=== PATIENT | male | born 1975 | race Caucasian/White ===

== ENCOUNTER 2019-03-07 17:19 | Emergency (ER) | payer SELFPAY ==
[~2019-03-07] VITALS: Ht 180.3 cm; Wt 81.7 kg
[~2019-03-07 17:19] MED LIST: Robaxin500 MG PO
[2019-03-07] MEDS ORDERED: Augmentin 875-1 EACH PO (17:57)
[2019-03-07] MEDS ORDERED: HYDR1TAB94 PO (17:57)
== END 2019-03-07 18:03 | disposition home or self-care (01) ==
LOC: ER 17:19
DX: K04.7 Periapical abscess without sinus (principal); F17.210 Nicotine dependence, cigarettes, uncomplicated
CPT/HCPCS: 99282

== ENCOUNTER 2022-01-15 18:20 | Emergency (ER) | payer OTHER ==
[~2022-01-15] VITALS: Ht 182.9 cm; Wt 77.1 kg
[~2022-01-15 18:20] MED LIST changes: +AMOCLA875 PO; +Augmentin 875-1 EACH PO; +HYDR1TAB94 PO; +HYOS.125 PO; +MASOPHEN500 M4 PO; +MULVITA PO; +VISBIOME 112.51 EACH PO
[2022-01-15] MEDS ORDERED: IBUP800 PO (21:06)
== END 2022-01-15 21:28 | disposition home or self-care (01) ==
LOC: ER 18:20
DX: S68.624A Partial traumatic transphalangeal amputation of right ring finger, initial encounter (principal); W28.XXXA Contact with powered lawn mower, initial encounter; F17.200 Nicotine dependence, unspecified, uncomplicated
CPT/HCPCS: 64450; 73130; 90471; 90714; 96372; 99283-25; J1885

== ENCOUNTER 2022-03-29 13:00 | Emergency (ER) | payer OTHER ==
[~2022-03-29] VITALS: Ht 182.9 cm; Wt 77.1 kg
[~2022-03-29 13:00] MED LIST changes: +IBUP800 PO
[2022-03-29] MEDS ORDERED: CEPH500 PO (15:20)
[2022-03-29] MEDS ORDERED: SULTRIDS PO (15:20)
== END 2022-03-29 15:30 | disposition home or self-care (01) ==
LOC: ER 13:00
DX: L98.9 Disorder of the skin and subcutaneous tissue, unspecified (principal); F17.210 Nicotine dependence, cigarettes, uncomplicated
CPT/HCPCS: 99282

== ENCOUNTER 2022-07-03 11:08 | Emergency (ER) | payer OTHER ==
[~2022-07-03] VITALS: Ht 190.5 cm; Wt 77.1 kg
[~2022-07-03 11:08] MED LIST changes: +CEPH500 PO; +SULTRIDS PO
[2022-07-03 12:46] LABS: Influenza A, PCR NEGATIVE (NEGATIVE); Influenza B, PCR NEGATIVE (NEGATIVE); Resp Syncytial Virus, PCR NEGATIVE (NEGATIVE); SARS-Cov-2 (COVID-19) PCR, MMC NEGATIVE (NEGATIVE)
[2022-07-03 16:11] LABS: Albumin/Globulin Ratio 0.7 (0.8-1.8); Bilirubin, Total 1.3 mg/dL (0.1-1.0); Bun/Creatinine Ratio 22.3 (12.0-20.0); Calcium, Blood 8.7 mg/dL (8.5-10.1); Creatinine, Blood 0.81 mg/dL (0.60-1.20); Globulin, Blood 4.2 g/dL (2.2-4.0); Potassium, Blood 4.4 mmol/L (3.5-5.5); Total Protein, Blood 7.2 g/dL (6.4-8.2)
[2022-07-03 16:13] LABS: Hemoglobin 14.6 g/dL (13.5-17.5); Mean Corpuscular HGB 31.7 pg (26.0-34.0); Mean Corpuscular Volume 93 fL (80-100); RDW Coefficient Variation 12.5 % (11.7-14.2); RDW Standard Deviation 43.1 fL (35.1-46.3); Red Blood Cell Count 4.61 M/mm3 (4.30-5.90); White Blood Cell Count 24.76 K/mm3 (4.00-11.30)
[2022-07-03] MEDS ORDERED: AZIT250 PO (17:22)
[2022-07-03] MEDS ORDERED: CEFD300 PO (17:22)
[2022-07-03 17:23] LABS: BAND PERCENT MAN 4 % (0-8); BASOPHILS PERCENT MAN 0 % (0-2); EOSINOPHILS PERCENT MAN 0 % (0-6); LYMPHOCYTES ABSOLUTE MAN 1.73 K/mm3 (0.84-5.20); LYMPHOCYTES PERCENT MAN 7 % (21-46); MONOCYTES ABSOLUTE MAN 1.48 K/mm3 (0.16-1.47); MONOCYTES PERCENT MAN 6 % (4-13); Mean Platelet Volume 9.6 fL (9.1-12.4); NEUTROPHILS ABSOLUTE MAN 21.54 K/mm3 (1.96-9.15); Platelet Count 157 K/mm3 (150-400); SEG NEUTROPHILS PERCENT MAN 83 % (41-73); TOTAL CELLS COUNTED 100
[2022-07-03] MEDS ORDERED: IBUP600 PO (17:23)
== END 2022-07-03 18:38 | disposition home or self-care (01) ==
LOC: ER 11:08
PROVIDERS: Physician Assistant
DX: J18.9 Pneumonia, unspecified organism (principal); F17.200 Nicotine dependence, unspecified, uncomplicated; Z20.822 Contact with and (suspected) exposure to COVID-19
CPT/HCPCS: 0241U; 36415; 71046; 80053; 83605; 85025; A9270; J0696; J7030

== ENCOUNTER 2025-02-13 19:34 | Emergency (ER) | payer OTHER ==
[~2025-02-13] VITALS: Ht 182.9 cm; Wt 72.6 kg
[~2025-02-13 19:34] MED LIST changes: +AZIT250 PO; +CEFD300 PO; +IBUP600 PO
[2025-02-13 19:57] LABS: BASOPHILS ABSOLUTE AUTO 0.03 K/mm3 (0.00-0.23); BASOPHILS PERCENT AUTO 0 % (0-2); EOSINOPHILS ABSOLUTE AUTO 0.21 K/mm3 (0.00-0.68); EOSINOPHILS PERCENT AUTO 3 % (0-6); Hematocrit 31.4 % (37.0-53.0); Hemoglobin 11.1 g/dL (13.5-17.5); IMMATURE GRAN ABSOLUTE AUTO 0.02 K/mm3 (0.00-0.10); IMMATURE GRAN PERCENT AUTO 0 % (0-1); LYMPHOCYTES ABSOLUTE AUTO 1.53 K/mm3 (0.84-5.20); LYMPHOCYTES PERCENT AUTO 21 % (21-46); MONOCYTES ABSOLUTE AUTO 0.93 K/mm3 (0.16-1.47); MONOCYTES PERCENT AUTO 13 % (4-13); Mean Corpuscular HGB Conc 35.4 g/dL (31.5-36.5); Mean Corpuscular Volume 91 fL (80-100); NEUTROPHILS ABSOLUTE AUTO 4.60 K/mm3 (1.96-9.15); NEUTROPHILS PERCENT AUTO 63 % (41-73); NRBC ABSOLUTE 0.00 K/mm3 (0.00-0.02); NRBC Auto 0.0 /100 WBC (0.0-0.2); Platelet Count 167 K/mm3 (150-400); RDW Coefficient Variation 12.0 % (11.7-14.2); RDW Standard Deviation 40.3 fL (35.1-46.3)
[2025-02-13 20:38] LABS: Alanine Aminotransfer (ALT/SGP 26.0 U/L (12-78); Albumin, Blood 3.3 g/dL (3.4-5.0); Albumin/Globulin Ratio 1.1 (0.8-1.8); Anion Gap 4.0 mmol/L (3-11); Aspartate Aminotrans (AST/SGOT 25.0 U/L (12-37); Bilirubin, Total 1.3 mg/dL (0.1-1.0); Blood Urea Nitrogen 25.0 mg/dL (8-24); CO2, Blood 23.0 mmol/L (21-32); Calcium, Blood 7.8 mg/dL (8.5-10.1); Chloride, Blood 116.0 mmol/L (98-108); Creatinine, Blood 0.93 mg/dL (0.60-1.20); Globulin, Blood 3.0 g/dL (2.2-4.0); Glucose, Blood 103.0 mg/dL (70-99); Potassium, Blood 3.2 mmol/L (3.5-5.5); Sodium, Blood 140.0 mmol/L (136-145); Total Protein, Blood 6.3 g/dL (6.4-8.2)
[2025-02-13 20:43] VITALS: BP 141/94
== END 2025-02-13 21:35 | disposition home or self-care (01) ==
LOC: ER 19:34
PROVIDERS: Student in an Organized Health Care Education/Training Program
DX: F15.10 Other stimulant abuse, uncomplicated (principal); R07.2 Precordial pain; F17.200 Nicotine dependence, unspecified, uncomplicated
CPT/HCPCS: 71046; 80053; 83690; 84484; 85025; 93005; 93010; 99285-25